=== PATIENT | male | born 1995 | race Two or more races ===

== ENCOUNTER 2021-11-24 18:37 | Emergency (ER) | payer SELFPAY ==
[~2021-11-24] VITALS: Ht 175.3 cm; Wt 80.0 kg
[2021-11-24 21:33] LABS: BASOPHILS % 0.7 % (0.0-2.0); EOSINOPHILS % 1.6 % (0.0-5.0); HEMATOCRIT. 40.9 % (42.0-52.0); HEMOGLOBIN. 13.7 g/dL (14.0-18.0); LYMPHOCYTES % 57.1 % (20.0-50.0); MEAN CORPUSCULAR HEMOGLOBIN 28.1 pg (28.0-32.0); MEAN CORPUSCULAR VOLUME 83.9 fL (80.0-94.0); MEAN PLATELET VOLUME 7.7 fl (7.4-10.4); MONOCYTES % 12.1 % (2.0-8.0); NEUTROPHILS % 28.5 % (40.0-76.0); PLATELET 338 x1000/uL (130-400); RED BLOOD CELL COUNT 4.88 mill/uL (4.7-6.1); RED CELL DISTRIBUTION WIDTH 15.6 % (11.6-14.6)
[2021-11-24 21:44] LABS: CHLORIDE 108 mEq/L (98-107)
[2021-11-24 21:52] LABS: ETHANOL BLOOD < 10 mg/dL
[2021-11-24] MEDS ORDERED: OLANZAPINE 10 MG/VIAL IM STA (22:00)
[2021-11-25] VITALS: BP 127/83
[2021-11-25] MEDS ORDERED: NALO4SPR BOTHNSTRLS (00:59)
== END 2021-11-25 01:11 | disposition home or self-care (01) ==
LOC: ER 18:37
DX: G93.40 Encephalopathy, unspecified (principal)
CPT/HCPCS: 36415; 80053; 80307; 80320; 80329; 85025; 99283; J3490; G0480